=== PATIENT | male | born 1980 | race African-American/Black ===

== ENCOUNTER 2019-01-14 08:51 | Emergency (ER) | payer SELFPAY ==
[~2019-01-14] VITALS: Ht 167.6 cm; Wt 66.0 kg
[2019-01-14] MEDS ORDERED: DIPHENHYDRAMINE 25MG CAPSULE PO ONE (10:15)
[2019-01-14 10:26] VITALS: BP 122/60
== END 2019-01-14 10:28 | disposition home or self-care (01) ==
LOC: ER 08:51
DX: L73.9 Follicular disorder, unspecified (principal); F17.200 Nicotine dependence, unspecified, uncomplicated; F12.10 Cannabis abuse, uncomplicated
CPT/HCPCS: 99283; Q0163